=== PATIENT | male | born 1975 | race Two or more races ===

== ENCOUNTER 2025-02-06 17:39 | Emergency (ER) | payer MEDICAID, OTHER ==
[~2025-02-06] VITALS: Ht 175.3 cm; Wt 80.1 kg
[2025-02-06] MEDS: KETOROLAC TROMETH 30 MG/ML 1ML VIAL IM ONE (20:43)
[2025-02-06] MEDS: LIDOCAINE VISCOUS 2% 15ML UD PO ONE (20:43)
[2025-02-06] MEDS: MAALOX PLUS or MAALOX 30 ML PO ONE (20:43)
--- NOTE | 2025-02-06 20:48 | ED.PDOC ---
History of Present Illness HPI Comments 49-year-old, Chinese/Emirati-speaking male presents with chief complaint of nonradiating, diffuse abdominal pain. Patient reports 3 day history of pain following initial, unprovoked and atraumatic onset. He also states on vomiting 2 times, yesterday, and eating nothing all day, today. Last reported meal i ncluded beef and alcohol. Pain worsens at evening time. No endorsed recent ailments, sick contact, travel, spoiled food consumption, or pertinent medical, surgical, family, or social history aside from previous incidences of isolated episodes of abdominal pain that resolved on her own within 1-2 days. Patient denies having any, current, nausea or vomiting, diarrhea, constipation, urinary problems, fever, chills, or further associated symptoms. REVIEW OF SYSTEMS: General: No fever, no chills, HEENT: No neck pain, no blurred vision Cardiac: No chest pain. No palpitations. Lungs: No shortness of breath, GI: Abdominal pain. Poor appetite. Musculoskeletal: No joint pain , no back pain Skin: No rash, no wound Neuro: No headache, no dizziness, no syncope PHYSICAL EXAM: General: Awake, alert and oriented. No acute distress. Skin: Skin in warm, dry and intact without rashes or lesions. HEENT: The head is normocephalic and atraumatic. Conjunctivae are clear without exudates or hemorrhage. Sclera is non-icteric. Neck: Normal range of motion. No JVD. Cardiac: Regular rate Respiratory: No signs of respiratory distress. No Stridor. Gastrointestinal: Generalized abdominal tenderness. Extremities: Upper and lower extremities are atraumatic in appearance without deformity. Neurological: The patient is awake, alert and oriented to person, place, and time with normal speech. Speech is clear. There is no facial asymmetry. Psychiatric: Appropriate mood and affect. Good judgement and insight. Chief Complaint: Abdominal Pain Time Seen by MD: 20:10 Reviewed Notes: Nurses Notes, Medications, Allergies Allergies: Coded Allergies: NO KNOWN ALLERGIES (Unverified , 02/06/25) Information Source: Patient Mode of Arrival: Ambulatory Severity: Moderate Timing: Days Duration: Since onset Prehospital treatment: None Past Medical History PAST MEDICAL HISTORY: Denies Surgical History: Denies all surgeries Family History Family History: Unknown Social History Smoker: Non-Smoker Alcohol: Denies ETOH Use Drugs: Denies Drug Use Lives In: Home Was a procedure done? Was a procedure done?: No Differential Dx Considerations may include: Differential diagnoses considered include: Abdominal aortic aneurysm, LA, esophageal rupture, intestinal obstruction, mesenteric ischemia, perforated viscus or solid organ rupture, CHF with hepatomegaly, pneumonia, abscess, appendicitis, biliary disease, diverticulitis, gastritis, gastroenteritis, hepatitis, hernia, inflammatory bowel disease, pancreatitis, peptic ulcer disease, urinary tract infection, ureteral colic, constipation, GERD, irritable syndrome, abdominal wall pain, nonspecific abdominal pain, herpes zoster, nephrolithiasis. X-Ray, Labs, Meds, VS Vital Signs Date Time Temp Pulse Resp B/P (MAP) Pulse Ox O2 Delivery O2 Flow Rate FiO2 02/06/25 21:18 98.1 66 16 124/65 (84) 99 98.1 02/06/25 17:41 97.2 80 15 140/86 98 97.2 Lab Test 02/06/25 20:40 Range/Units White Blood Count 8.2 4.4-10.8 10^3/uL Red Blood Count 4.74 4.5-5.90 10^6/uL Hemoglobin 14.5 13.5-17.5 g/dL Hematocrit 42.8 41.0-53.0 % Mean Corpuscular Volume 90.4 80.0-100.0 fL Mean Corpuscular Hemoglobin 30.5 28.0-32.0 pg Mean Corpuscular Hemoglobin Concent 33.7 32.0-36.0 g/dL Red Cell Distribution Width 13.5 11.8-14.3 % Platelet Count 182 140-450 10^3/uL Mean Platelet Volume 7.9 6.9-10.8 fL Neutrophils (%) (Auto) 46.7 37.0-80.0 % Lymphocytes (%) (Auto) 45.0 10.0-50.0 % Monocytes (%) (Auto) 6.5 0.0-12.0 % Eosinophils (%) (Auto) 1.3 0.0-7.0 % Basophils (%) (Auto) 0.5 0.0-2.0 % Neutrophils # (Auto) 3.9 1.6-8.6 10 ^3/uL Lymphocytes # (Auto) 3.7 0.4-5.4 10 ^3/uL Monocytes # (Auto) 0.5 0-1.3 10 ^3/uL Eosinophils # (Auto) 0.1 0-0.8 10 ^3/uL Basophils # (Auto) 0 0-0.2 10 ^3/uL Nucleated Red Blood Cells 0.0 % Sodium Level 141 136-145 mmol/L Potassium Level 3.8 3.5-5.1 mmol/L Chloride Level 106 98-107 mmol/L Carbon Dioxide Level 30 20-31 mmol/L Anion Gap 5 5-15 Blood Urea Nitrogen 15 9-23 mg/dL Creatinine 0.77 0.700-1.30 mg/dL Glomerular Filtration Rate Calc 110 >90 mL/min BUN/Creatinine Ratio 19.5 10.0-20.0 Serum Glucose 90 74-106 mg/dL Calcium Level 9.8 8.7-10.4 mg/dL Total Bilirubin 0.7 0.2-1.0 mg/dL Aspartate Amino Transferase (AST) 31 13-40 U/L Alanine Aminotransferase (ALT) 38 7-40 U/L Alkaline Phosphatase 91 46-116 U/L Total Protein 7.1 5.7-8.2 g/dL Albumin 4.3 3.2-4.8 g/dL Lipase 32 12-53 U/L Current Medications Medications (Trade) Dose Ordered Sig/Alcides Route Start Time Stop Time Status Last Admin Ketorolac Tromethamine (Toradol Injection) 30 mg ONCE ONCE IM 02/06/25 20:30 02/06/25 20:31 DC 02/06/25 20:43 Al Hydrox/Mg Hydrox/Simethicone (Maalox Plus) 30 ml ONCE ONCE PO 02/06/25 20:30 02/06/25 20:31 DC 02/06/25 20:43 Lidocaine HCl (Xylocaine 2% Viscous) 10 ml ONCE ONCE PO 02/06/25 20:30 02/06/25 20:31 DC 02/06/25 20:43 Time of 1ST Reevaluation: 20:40 Reevaluation 1ST: Unchanged Patient Education/Counseling: Treatment, Need For Follow Up Family Education/Counseling: No Family Present SEPSIS Sepsis Screen Date sepsis recognized/suspect: Feb 06, 2025 Time Sepsis recognized/suspect: 1743 Recent Procedure: No On Antibiotic Therapy: No Respiratory Rate >20: No Heart Rate >90: No Temp<36 C (96.8 F) or >38.3 C: No SBP <90 or MAP <65 mmHG: No New Acute Mental Status Change: No Is the patient on CPAP, BIPAP,: No Physician Orders Ct Ab Pel Wo Con-No Oral Or Iv (02/06/25 20:16) Vital Signs Date Time Temp Pulse Resp B/P (MAP) Pulse Ox O2 Delivery O2 Flow Rate FiO2 02/06/25 21:18 98.1 66 16 124/65 (84) 99 98.1 02/06/25 17:41 97.2 80 15 140/86 98 97.2 Laboratory Tests Test 02/06/25 20:40 White Blood Count 8.2 10^3/uL (4.4-10.8) Medications Medications Dose Ordered Sig/Alcides Route Start Time Stop Time Status Last Admin Dose Admin Al Hydrox/Mg Hydrox/Simethicone 30 ml ONCE ONCE PO 02/06/25 20:30 02/06/25 20:31 DC 02/06/25 20:43 Ketorolac Tromethamine 30 mg ONCE ONCE IM 02/06/25 20:30 02/06/25 20:31 DC 02/06/25 20:43 Lidocaine HCl 10 ml ONCE ONCE PO 02/06/25 20:30 02/06/25 20:31 DC 02/06/25 20:43 Departure 1 Departure Time of Disposition: 22:29 Impression: Primary Impression: Abdominal pain Additional Impression: Coronary artery calcification seen on CAT scan Disposition: HOME / SELF CARE / HOMELESS Condition: Stable Additional Instructions: ED DISCHARGE INSTRUCTIONS Instructions: Please read all instructions provided in this packet carefully. Although you have been discharged from the Emergency Department, this does not mean that you have a "clean bill of health". No definitive diagnosis for your symptoms has been made today. It is possible that you are in the process of developing a serious illness. This is why you must return to the ED without fail if any new or worsening symptoms (especially if your symptoms include chest pain, trouble breathing, abdominal pain, fever, headache, confusion, trouble seeing, or trouble walking) It is also very important that you see a primary care provider (PCP) within the next 3-5 days to follow up. If you are unable to get an appointment, return to the ED for re-evaluation. Your CAT SCAN today showed that you have calcifications of the arteries in your heart. It is very important that you have further evaluation done. Your primary care provider may need to refer you to see a answering service telephone operator. CHEST PAIN EDUCATION There are many things that can cause chest pain. Some are not serious and will get better on their own in a few days. But some kinds of chest pain need more testing and treatment. Your doctor may have recommended a follow-up visit in the next few days. If you are not getting better, you may need more tests or treatment. Even though your doctor has released you, you still need to watch for any problems. The doctor carefully checked you, but sometimes problems can develop later. If you have new symptoms or if your symptoms do not get better, get medical care right away. If you have worse or different chest pain or pressure that lasts more than 5 minutes or you passed out (lost consciousness), call 911 or seek other emergency help right away. A medical visit is only one step in your treatment. Even if you feel better, you still need to do what your doctor recommends, such as going to all suggested follow-up appointments and taking medicines exactly as directed. This will help you recover and help prevent future problems. How can you care for yourself at home? Rest until you feel better. Take your medicine exactly as prescribed. Call your doctor if you think you are having a problem with your medicine. Do not drive after taking a prescription pain medicine. When should you call for help? Call 911 if: You passed out (lost consciousness). You have severe difficulty breathing. You have symptoms of a heart attack. These may include: Chest pain or pressure, or a strange feeling in your chest. Sweating. Shortness of breath. Nausea or vomiting. Pain, pressure, or a strange feeling in your back, neck, jaw, or upper belly or in one or both shoulders or arms. Lightheadedness or sudden weakness. A fast or irregular heartbeat. After you call 911, the kohinoor operator may tell you to chew 1 adult-strength or 2 to 4 low-dose aspirin. Wait for an ambulance. Do not try to drive yourself. Call your doctor now or seek immediate medical care if: You have any trouble breathing. You have new or different chest pain. You are dizzy or lightheaded, or you feel like you may faint. Watch closely for changes in your health, and be sure to contact your doctor if you do not get better as expected. Current as of: November 18, 2023 Author: [employer] Staff? e-Prescriptions Acetaminophen (Acetaminophen) 500 Mg Tab 500 MG PO QIDPRN for 3 Days, #12 TAB Prov: ARCHANA HARRELL MD 02/06/25 Comments MDM: 49-year-old male presented with abdominal pain. No peritoneal signs on abdominal exam. No evidence of acute abdomen at this time. patient is well appearing. Labs show no leukocytosis or elevation of LFTs. Imaging shows no acute process. Patient is afebrile. Patient is not hypotensive. Low suspicion for acute hepatobiliary disease (including acute cholecystitis, acute pancreatitis, PUD (including perforation), acute infectious process (pneumonia, hepatitis, pyelonephritis), acute appendicitis, vascular catastrophe, bowel obstructions, viscous perforation. Presentation not consistent with other acute, emergent causes of abdominal pain at this time. Extensive evaluation was performed in attempt to identify or rule out: (See differential diagnosis section) The following tests were ordered, and results were reviewed by me and discussed with patient: (See diagnostic results section) The following test were independently interpreted by me: N/A I reviewed the following notes from the pt's past medical encounters: N/A Additional information was gathered from interviewing the following independent historians: N/A Discussion of management or test interpretation with external physician/other qualified health personal care assistant: N/A Decision regarding hospitalization or escalation of hospital level of care: Risks and benefits of admission for further treatment of patient's condition was considered however due to patient's stable condition patient will be discharged to follow up closely or return to care for worsening of condition or inability to follow up. Critical Care Note Critical Care Time?: No Stability Stability form required: No Heart Score Heart Score: Heart Score Response (Comments) Value History N/A 0 EKG N/A 0 Age N/A 0 Risk Factors N/A 0 Troponin N/A 0 Total 0 I personally scribed for ARCHANA HARRELL MD ([email or web address]) on 02/06/25 at 20:48. Electronically submitted by Charly Payan ([email or web address]). ARCHANA HARRELL MD Feb 06, 2025 20:48
[2025-02-06 21:05] LABS: Hematocrit 42.8 % (41.0-53.0); Hemoglobin 14.5 g/dL (13.5-17.5); Mean Corpuscular Hemoglobin 30.5 pg (28.0-32.0); Mean Corpuscular Volume 90.4 fL (80.0-100.0); Nucleated Red Blood Cells % 0.0 %
[2025-02-06 21:17] LABS: Alanine Aminotransferase 38 U/L (7-40); Albumin 4.3 g/dL (3.2-4.8); Alkaline Phosphatase 91 U/L (46-116); Anion Gap 5 (5-15); BUN/Creatinine Ratio 19.5 (10.0-20.0); Bilirubin, Total 0.7 mg/dL (0.2-1.0); Blood Urea Nitrogen 15 mg/dL (9-23); Calcium 9.8 mg/dL (8.7-10.4); Carbon Dioxide 30 mmol/L (20-31); Chloride 106 mmol/L (98-107); Glucose 90 mg/dL (74-106); Lipase 32 U/L (12-53); Potassium 3.8 mmol/L (3.5-5.1); Sodium 141 mmol/L (136-145); Total Protein 7.1 g/dL (5.7-8.2)
--- NOTE | 2025-02-06 22:16 | DVH ---
CLINICAL HISTORY: Abdominal pain, nausea and vomiting TECHNIQUE: CT of the abdomen and pelvis was performed without IV contrast. This exam was performed ac cording to our departmental dose optimization program. Up-to-date CT equipment and radiation dose red uction techniques are utilized as appropriate. CTDI 6.7 DLP 381 COMPARISON: None FINDINGS: Abdomen/Pelvis: Evaluation is limited due to image degradation secondary to patient motion. The spleen, pancreas, adrenal glands, liver, left kidney, and prostate gland are grossly unremarkable . The gallbladder is not seen and may be absent or contracted. Hypodense right renal lesion is incompletely characterized due to lack of IV contrast. The bladder is not well distended therefore not well evaluated. The abdominal aorta is normal in course and caliber. There are no significant atherosclerotic calcifi cations. There is no free intraperitoneal air or fluid. There is no enlarged abdominal pelvic lymph node. There is no bowel wall thickening or dilatation. The appendix is normal. Other: The imaged lower thorax demonstrates coronary artery calcifications. No acute osseous abnormality is evident. Impression: No acute noncontrast CT abnormality in the abdomen or pelvis. Coronary artery calcifications.
[2025-02-06] MEDS ORDERED: ACET500T58 PO (22:34)
[2025-02-06 23:00] VITALS: BP 126/68; PULSE 74; RESP 16; TEMP 98.3; O2SAT 97
== END 2025-02-06 23:15 | disposition home or self-care (01) ==
LOC: ER 17:39
DX: I25.10 Atherosclerotic heart disease of native coronary artery without angina pectoris (principal); R10.84 Generalized abdominal pain
CPT/HCPCS: 36415; 74176; 80053; 83690; 85025; 96372; 99285; J1885